=== PATIENT | female | born 1965 | race Caucasian/White ===

== ENCOUNTER 2016-07-29 19:50 | Observation (INO) | payer OTHER ==
[~2016-07-29] VITALS: Ht 152.4 cm; Wt 44.7 kg
[~2016-07-29 19:50] MED LIST: CATAPRES0.1 MG PO; CHILDREN'S160 MG/15 PO; CIPRO500 MG PO; COGENTIN0.5 MG PO; CRESTOR10 MG PO; DIAZEPAM10 MG PO; FLEET ENEMA-AD118 ML PR; GAS RELIEF 8080 MG PO; KLONOPIN0.5 M1 PO; LOPERAMIDE2 M1 PO; MILK OF MAGN PO; MIRALAX17 GM PO; MOTRIN400 MG PO; MYLICON,MYLANTA80 MG PO; NEURONTIN300 MG PO; PYRIDIUM100 MG PO; Q-TUSSIN DM SY240 ML PO; QUETIAPINE FUMA25 MG PO; RANITIDINE HCL150 MG PO; SENNA PLUS TAB1 EACH PO; SENOKOT S,PE1 TABLET PO; SEROQUEL50 MG PO; SERTRALINE HCL100 MG PO; TEGRETOL200 MG PO; THERAGRAN1 TABLET PO; THEREMS H PO; TRIAMCINOLONE A15 G2 TP; ZANTAC150 MG PO; ZOLOFT100 MG PO; ZOLOFT50 MG PO
[2016-07-29 20:59] LABS: HEMATOCRIT 43.7 % (36.0-46.0); MCHC 33.4 G/DL (30.0-36.0); MCV 92.8 FL (83-99); MEAN PLAT.VOLUME 9.7 uM^3 (9.5-12.4); PLATELET COUNT 241 K/uL (156-360); RBC DIS.WIDTH-CV 12.1 % (11.8-14.6); RBC DIS.WIDTH-SD 41.6 % (39-53); RED BLOOD COUNT 4.71 M/uL (3.80-5.20); WHITE BLOOD COUNT 14.8 K/uL (4.1-10.2)
[2016-07-29 21:08] LABS: INTER. NORMALIZED RATIO 1.1; PROTHROMBIN TIME 11.6 (9.2-11.2); PTT 25.1 (25-32)
[2016-07-29 21:10] LABS: CHLORIDE 106 mEq/L (99-109); POTASSIUM 3.8 mEq/L (3.7-5.4); SODIUM 141 mEq/L (136-147)
[2016-07-29 21:12] LABS: GLUCOSE 114 mg/dL (70-99)
[2016-07-29 21:14] LABS: ANION GAP 9 MEQ/L (2-14); TOTAL BILIRUBIN 0.3 mg/dL (0.0-1.0)
[2016-07-29 21:16] LABS: ALKALINE PHOSPHATASE 70 IU/L (3-129); GFR ESTIMATE (CALCULATED) > 59 mL/min/
[2016-07-29 21:17] LABS: UREA NITROGEN (BUN) 16 mg/dL (9-23)
[2016-07-29 21:19] LABS: LIPASE 20 U/L (1.0-51.0)
[2016-07-29] MEDS ORDERED: LITHIUM CARBON300 MG PO (23:09)
[2016-07-29] MEDS ORDERED: LITHIUM CARBON600 MG PO (23:10)
[2016-07-29] MEDS ORDERED: THEREMS H PO (23:11)
[2016-07-29] MEDS ORDERED: ZOLOFT25 MG PO (23:11)
[2016-07-29] MEDS ORDERED: SENNA PLUS TAB1 EACH PO (23:13)
[2016-07-29] MEDS ORDERED: HI-CAL1000 ML PO (23:16)
[2016-07-29] MEDS ORDERED: CHLORHEXIDINE473 ML MM (23:18)
[2016-07-29] MEDS ORDERED: VALIUM10 MG PO (23:19)
[2016-07-29] MEDS ORDERED: VALIUM5 MG PO (23:20)
[2016-07-29] MEDS ORDERED: IBUPROFEN400 MG PO (23:22)
[2016-07-29] MEDS ORDERED: CHILDREN'S160 MG/22 PO (23:24)
[2016-07-29] MEDS ORDERED: CALMOSEPTINE O120 GM TP (23:26)
[2016-07-30 03:05] VITALS: BP 127/56
[2016-07-30 06:25] LABS: TROP-I INTERPRETATION NEGATIVE; TROPONIN-I < 0.01 ng/mL (0.0-0.30)
[2016-07-30 08:17] LABS: EOSINOPHIL (%) 0.2 % (0-5); IMMATURE GRANULOCYTE (%) 0.3 % (0.0-0.7); INSTRUMENT ABS NEUTROPHIL CT 9.2 K/uL; LYMPHOCYTE COUNT 1.2 K/uL (1.0-2.8); MCH 32.3 PG (29.0-34.0); MCHC 33.6 G/DL (30.0-36.0); MCV 96.3 FL (83-99); MONOCYTE COUNT 0.7 K/uL (0-0.8); NEUTROPHIL (%) 82.3 % (45-76); NEUTROPHIL COUNT 9.2 K/uL (1.8-6.4); RBC DIS.WIDTH-CV 12.4 % (11.8-14.6); RED BLOOD COUNT 4.05 M/uL (3.80-5.20); WHITE BLOOD COUNT 11.2 K/uL (4.1-10.2)
[2016-07-30 08:43] LABS: MEAN PLAT.VOLUME 10.3 uM^3 (9.5-12.4); PLAT.SUFFICIENCY ADEQUATE; PLATELET COUNT 208 K/uL (156-360)
[2016-07-30 08:59] VITALS: BP 99/48
[2016-07-30 11:56] VITALS: BP 102/67
[2016-07-30 12:48] LABS: TROP-I INTERPRETATION NEGATIVE; TROPONIN-I < 0.01 ng/mL (0.0-0.30)
[2016-07-30 18:20] LABS: EOSINOPHIL (%) 2.5 % (0-5); EOSINOPHIL COUNT 0.2 K/uL (0-0.3); HEMATOCRIT 36.8 % (36.0-46.0); IMMATURE GRANULOCYTE (%) 0.3 % (0.0-0.7); LYMPHOCYTE COUNT 1.9 K/uL (1.0-2.8); MCH 31.9 PG (29.0-34.0); MCHC 33.2 G/DL (30.0-36.0); MCV 96.1 FL (83-99); MEAN PLAT.VOLUME 9.8 uM^3 (9.5-12.4); MONOCYTE (%) 8.8 % (3-12); MONOCYTE COUNT 0.6 K/uL (0-0.8); NEUTROPHIL (%) 60.4 % (45-76); PLATELET COUNT 188 K/uL (156-360); RBC DIS.WIDTH-CV 12.2 % (11.8-14.6); RBC DIS.WIDTH-SD 42.8 % (39-53); RED BLOOD COUNT 3.83 M/uL (3.80-5.20)
[2016-07-30 18:25] LABS: WHITE BLOOD COUNT 6.7 K/uL (4.1-10.2)
[2016-07-30 18:30] LABS: TROP-I INTERPRETATION NEGATIVE; TROPONIN-I < 0.01 ng/mL (0.0-0.30)
[2016-07-30 20:00] VITALS: BP 127/72
[2016-07-30 23:53] VITALS: BP 100/59
[2016-07-31 00:45] LABS: HEMATOCRIT 36.2 % (36.0-46.0)
[2016-07-31 04:40] VITALS: BP 96/55
[2016-07-31 05:29] LABS: HEMATOCRIT 35.5 % (36.0-46.0); MCH 31.9 PG (29.0-34.0); MCV 96.7 FL (83-99); PLATELET COUNT 175 K/uL (156-360); RBC DIS.WIDTH-SD 42.9 % (39-53); RED BLOOD COUNT 3.67 M/uL (3.80-5.20); WHITE BLOOD COUNT 5.7 K/uL (4.1-10.2)
[2016-07-31 08:00] VITALS: BP 93/54
[2016-07-31 08:25] VITALS: BP 99/55
[2016-07-31] MEDS ORDERED: PANTOPRAZOLE SO40 MG PO (09:21)
== END 2016-07-31 13:51 | disposition home or self-care (01) ==
LOC: EME → EDBD 19:50 → 5WEST 07-30 02:03 → EDOF 07-30 02:03 → 5WEST 07-30 02:59
PROVIDERS: Emergency Medicine; Hospitalist; Specialist
DX: K92.0 Hematemesis (principal); K29.50 Unspecified chronic gastritis without bleeding; K22.70 Barrett's esophagus without dysplasia; K80.20 Calculus of gallbladder without cholecystitis without obstruction; G40.909 Epilepsy, unspecified, not intractable, without status epilepticus; E78.5 Hyperlipidemia, unspecified; F72 Severe intellectual disabilities; F32.9 Major depressive disorder, single episode, unspecified
CPT/HCPCS: 74177; 80053; 81003; 82948; 83690; 84484; 85014; 85018; 85025; 85025 91; 85027; 85610; 85730; 88305; 88342 TC; 99281; 99285; C9113; G0378; J2405; J7030; J7042

== ENCOUNTER 2017-03-17 21:46 | Emergency (ER) | payer OTHER ==
[~2017-03-17] VITALS: Ht 162.6 cm; Wt 50.4 kg
[~2017-03-17 21:46] MED LIST changes: +CALMOSEPTINE O120 GM TP; +CHILDREN'S160 MG/22 PO; +CHLORHEXIDINE473 ML MM; +HI-CAL1000 ML PO; +IBUPROFEN400 MG PO; +LITHIUM CARBON300 MG PO; +LITHIUM CARBON600 MG PO; +PANTOPRAZOLE SO40 MG PO; +VALIUM10 MG PO; +VALIUM5 MG PO; +ZOLOFT25 MG PO
[2017-03-17 22:19] LABS: HEMATOCRIT 45.3 % (36.0-46.0); HEMOGLOBIN 15.8 G/DL (11.9-15.5); MCH 32.2 PG (29.0-34.0); MCHC 34.9 G/DL (30.0-36.0); MCV 92.4 FL (83-99); PLATELET COUNT 271 K/uL (156-360); RBC DIS.WIDTH-CV 12.2 % (11.8-14.6); RBC DIS.WIDTH-SD 41.6 % (39-53); WHITE BLOOD COUNT 9.2 K/uL (4.1-10.2)
[2017-03-17 23:03] LABS: ALBUMIN 4.6 g/dL (3.2-4.8)
[2017-03-17 23:04] LABS: CHLORIDE 106 mEq/L (99-109); POTASSIUM 4.3 mEq/L (3.7-5.4); SODIUM 139 mEq/L (136-147)
[2017-03-17 23:06] LABS: GLUCOSE 124 mg/dL (70-99); TOTAL PROTEIN 7.6 g/dL (6.4-8.3)
[2017-03-17 23:08] LABS: TOTAL BILIRUBIN 0.2 mg/dL (0.0-1.0)
[2017-03-17 23:09] LABS: ALKALINE PHOSPHATASE 83 IU/L (3-129)
[2017-03-17 23:10] LABS: CREATININE 0.6 mg/dL (0.6-1.3); GFR ESTIMATE (CALCULATED) > 59 mL/min/
[2017-03-17 23:11] LABS: AST (GOT) 18 IU/L (2-34); UREA NITROGEN (BUN) 11 mg/dL (9-23)
[2017-03-17 23:12] LABS: ALT (GPT) 15 IU/L (3-49)
[2017-03-18] MEDS ORDERED: MIRALAX17 GM PO (00:54)
[2017-03-18] MEDS ORDERED: ZOFRAN ODT4 MG PO (00:58)
[2017-03-18] MEDS ORDERED: FLEET MINERAL133 ML PR (01:08)
[2017-03-18 01:39] VITALS: BP 97/48
[2017-03-18 01:49] LABS: LIPASE 17 U/L (1.0-51.0)
== END 2017-03-18 01:42 | disposition home or self-care (01) ==
LOC: EME 21:46
PROVIDERS: Physician Assistant
DX: R11.2 Nausea with vomiting, unspecified (principal); K56.41 Fecal impaction; K80.20 Calculus of gallbladder without cholecystitis without obstruction; M85.80 Other specified disorders of bone density and structure, unspecified site; F73 Profound intellectual disabilities
CPT/HCPCS: 71045; 74176; 80053; 83690; 85027; 87502; 99281; 99284; J2060; J2405; J7030

== ENCOUNTER 2017-08-28 13:33 | Emergency (ER) | payer OTHER ==
[~2017-08-28] VITALS: Ht 162.6 cm; Wt 41.8 kg
[~2017-08-28 13:33] MED LIST changes: +FLEET MINERAL133 ML PR; +ZOFRAN ODT4 MG PO
[2017-08-28 15:32] LABS: HEMATOCRIT 47.7 % (36.0-46.0); HEMOGLOBIN 16.4 G/DL (11.9-15.5); MCH 32.3 PG (29.0-34.0); MCHC 34.4 G/DL (30.0-36.0); MCV 93.9 FL (83-99); PLATELET COUNT 215 K/uL (156-360); RBC DIS.WIDTH-CV 11.9 % (11.8-14.6); RBC DIS.WIDTH-SD 41.4 % (39-53); RED BLOOD COUNT 5.08 M/uL (3.80-5.20); WHITE BLOOD COUNT 7.1 K/uL (4.1-10.2)
[2017-08-28 15:49] LABS: ALBUMIN 4.7 g/dL (3.2-4.8); CHLORIDE 107 mEq/L (99-109); POTASSIUM 4.6 mEq/L (3.7-5.4); SODIUM 138 mEq/L (136-147)
[2017-08-28 15:51] LABS: GLUCOSE 127 mg/dL (70-99); TOTAL PROTEIN 7.9 g/dL (6.4-8.3)
[2017-08-28 15:53] LABS: TOTAL BILIRUBIN 0.3 mg/dL (0.0-1.0)
[2017-08-28 15:55] LABS: ALKALINE PHOSPHATASE 75 IU/L (3-129); CREATININE 0.7 mg/dL (0.6-1.3); GFR ESTIMATE (CALCULATED) > 59 mL/min/
[2017-08-28 15:56] LABS: UREA NITROGEN (BUN) 10 mg/dL (9-23)
[2017-08-28 15:57] LABS: AST (GOT) 23 IU/L (2-34)
[2017-08-28 15:58] LABS: ALT (GPT) 17 IU/L (3-49); LIPASE 21 U/L (1.0-51.0)
[2017-08-28 16:04] LABS: QUANTITATIVE HCG < 4.0 MIU/ML
[2017-08-28] MEDS ORDERED: ZOFRAN ODT4 MG PO (17:19)
[2017-08-28] MEDS ORDERED: FLEET ENEMA-AD118 ML PR (17:19)
[2017-08-28 18:03] VITALS: BP 128/97
== END 2017-08-28 18:28 | disposition home or self-care (01) ==
LOC: EME 13:33
DX: K59.00 Constipation, unspecified (principal); R11.2 Nausea with vomiting, unspecified; F79 Unspecified intellectual disabilities; E78.5 Hyperlipidemia, unspecified; F41.9 Anxiety disorder, unspecified; Z87.440 Personal history of urinary (tract) infections
CPT/HCPCS: 74022; 80053; 81003; 83690; 84702; 85027; 99281; 99285; J1885; J2405; J7030